=== PATIENT | female | born 1940 | race Two or more races ===

== ENCOUNTER 2024-04-21 10:10 | Emergency (ER) | payer MEDICARE, MEDICAID ==
[2024-04-21 12:21] VITALS: PULSE 68; RESP 18; O2SAT 97
[2024-04-21 13:21] VITALS: BP 148/64; PULSE 60; RESP 16; TEMP 97.9; O2SAT 96
== END 2024-04-21 13:29 | disposition home or self-care (01) ==
LOC: EDBD 10:10 → ER 10:10
DX: M25.511 Pain in right shoulder (principal); J44.9 Chronic obstructive pulmonary disease, unspecified; V49.9XXA Car occupant (driver) (passenger) injured in unspecified traffic accident, initial encounter; Y93.89 Activity, other specified; Y92.89 Other specified places as the place of occurrence of the external cause; Y99.8 Other external cause status
CPT/HCPCS: 73030